=== PATIENT | female | born 1990 | race Caucasian/White ===

== ENCOUNTER 2016-07-06 08:34 | Emergency (ER) | payer OTHER ==
[~2016-07-06] VITALS: Ht 165.1 cm; Wt 93.4 kg
[2016-07-06 08:40] VITALS: BP 133/62
--- NOTE | 2016-07-06 08:49 | PHYS DOC ---
Past Medical History Past Medical History: Asthma Past Surgical History: No Surgical History Alcohol Use: Occasionally Drug Use: None Adult General Chief Complaint Chief Complaint: ASTHMA HPI HPI Patient is a 25 year old female, with a history of asthma in is 20 weeks , presents emergency room with concerns for increasing problems with her asthma over the past week. Patient states it happens at this time of year during allergy season. She states she is also taking Zyrtec for her allergies. Patient denies known history of previous intubations for asthma complications. She states that she was hospitalized once as a very young child but has no memory of this. In regards to patient's , she reports that it is uncomplicated. She denies abdominal/pelvic pain, vaginal bleeding or vaginal discharge. Patient is followed by Dr. Dai [employer]. Of incidental note, patient was seen almost one year ago at this facility for the same thing. Review of Systems Review of Systems Constitutional: Denies fever or chills [] Eyes: Denies change in visual acuity, redness, or eye pain [] HENT: Denies nasal congestion or sore throat [] Respiratory: Denies cough or shortness of breath [] Cardiovascular: No additional information not addressed in HPI [] GI: Denies abdominal pain, nausea, vomiting, bloody stools or diarrhea [] : Denies dysuria or hematuria [] Musculoskeletal: Denies back pain or joint pain [] Integument: Denies rash or skin lesions [] Neurologic: Denies headache, focal weakness or sensory changes [] Endocrine: Denies polyuria or polydipsia [] Current Medications Current Medications Current Medications Medications (Trade) Dose Ordered Sig/Mook Start Time Stop Time Status Last Admin Dose Admin Albuterol/ Ipratropium (Duoneb) 3 ml 1X ONCE 07/06/16 09:30 07/06/16 09:31 07/06/16 08:52 3 ML Prednisone (Prednisone) 50 mg 1X ONCE 07/06/16 09:30 07/06/16 09:31 07/06/16 09:07 50 MG Allergies Allergies Allergies Coded Allergies Type Severity Reaction Last Updated Verified No Known Drug Allergies 08/13/15 No Physical Exam Physical Exam Constitutional: Well developed, well nourished, no acute distress, non-toxic appearance. Patient is afebrile HENT: Normocephalic, atraumatic, bilateral external ears normal, oropharynx moist, no oral exudates, boggy nasal mucosa with scant amount of clear rhinorrhea. Eyes: PERRLA, EOMI, conjunctiva normal, no discharge. [] Neck: Normal range of motion, no tenderness, supple, no stridor. No cervical lymphadenopathy. Cardiovascular:Heart rate regular rhythm, no murmur [] Lungs & Thorax: There is no evidence of respiratory distress or respiratory fatigue. Patient speaks in full, unbroken sentences. There is no posturing or sensory muscle use. There is scant, bilateral end expiratory wheezing. Oxygen saturation on room air is 96%. Abdomen: Bowel sounds normal, soft, no tenderness, no masses, no pulsatile masses. Abdomen is gravid with fundal height consistent with dates. Nontender to palpation. Skin: Warm, dry, no erythema, no rash. [] Back: No tenderness, no CVA tenderness. [] Extremities: No tenderness, no cyanosis, no clubbing, ROM intact, no edema. [] Neurologic: Alert and oriented X 3, normal motor function, normal sensory function, no focal deficits noted. [] Psychologic: Affect normal, judgement normal, mood normal. [] Current Patient Data Vital Signs Vital Signs Date Time Temp Pulse Resp B/P Pulse Ox O2 Delivery O2 Flow Rate FiO2 07/06/16 08:40 97.7 84 20 96 Room Air 97.7 EKG EKG [] Radiology/Procedures Radiology/Procedures [] Course & Med Decision Making Course & Med Decision Making Patient received a DuoNeb treatment via RT. She received 50 mg of prednisone by mouth. Reevaluation post nebulizer treatment finds patient "feeling much better ". Patient has no residual wheezing. She demonstrates ease of breathing without any difficulty. Dragon Disclaimer Dragon Disclaimer This electronic medical record was generated, in whole or in part, using a voice recognition dictation system. Departure Departure Impression: Primary Impression: Asthma attack Disposition: HOME, SELF-CARE Condition: IMPROVED Referrals: NO PCP (PCP) Patient Instructions: Allergic Rhinitis, Asthma Prevention-Brief, Asthma, Adult , [id number] Additional Instructions: 1. Review the discharge instructions provided for self-care and reasons to return to the emergency department. 2. Take the medication as prescribed. 3. Contact Dr. Dai's office Thursday to schedule follow-up appointment. Scripts Cetirizine Hcl (Zyrtec)10 Mg Tablet1 Tab PO DAILY #30 TAB Ref 2 Prov:MIKE HORNE 07/06/16 Prednisone 20 Mg Tablet2 Tab PO DAILY 4 Days Prov:MIKE HORNE 07/06/16 Albuterol Sulfate (Ventolin Hfa Inhaler)18 Gm Hfa.aer.ad2 Puff INH Q4HRS FOR ASTHMA #2 INHALER Ref 1 Use the inhaler when the nebulizer is not available. Prov:MIKE HORNE 07/06/16 Albuterol Sulfate (Albuterol Sulfate Conc Neb Soln)2.5 Mg/0.5 Ml Vial.neb1 Vial NEB Q4HRS #60 VIAL Ref 1 Prov:MIKE HORNE 07/06/16 MIKE HORNE Jul 06, 2016 08:49
[2016-07-06] MEDS ORDERED: CETI10TA22 PO (09:14)
[2016-07-06] MEDS ORDERED: VENTOLIN HFA18 GM INH (09:14)
[2016-07-06] MEDS ORDERED: PRED20TA PO (09:14)
[2016-07-06] MEDS ORDERED: ALBU2.5V14 NEB (09:14)
[2016-07-06] MEDS ORDERED: PREDNISONE 10 MG TABLET PO ONE (09:30)
[2016-07-06] MEDS ORDERED: IPRATRPIUM/ALBUTEROL 0.5/2.5MG 3 ML NEBU. NEB ONE (09:30)
== END 2016-07-06 09:23 | disposition home or self-care (01) ==
LOC: ER 08:34
DX: O99.512 Diseases of the respiratory system complicating pregnancy, second trimester (principal); J45.909 Unspecified asthma, uncomplicated; Z3A.20 20 weeks gestation of pregnancy
CPT/HCPCS: 94250; 94640; 99283; J7512; J7620

== ENCOUNTER → 2016-07-28 | Outpatient (CLI) | payer OTHER ==
[2016-07-06 08:40] VITALS: BP 133/62
[~2016-07-28] MED LIST: ALBU2.5V14 NEB; CETI10TA22 PO; PRED20TA PO; VENTOLIN HFA18 GM INH
--- NOTE | 2016-07-28 11:15 | RAD ---
Examination: Obstetric ultrasound History: History of uterine size date discrepancy 5 comparison: None available Findings: The cervical length is 5.2 cm LMP 02/11/2016 Clinical history 24 weeks and 0 days with expected date of delivery 11/17/2016 Ultrasound age is 23 weeks and 1 days with the ultrasound expected date of delivery 11/23/2016 Estimated weight 616 g +/- 91 g Cephalic index 73.2 Head circumference to abdominal circumference is 1.09 Femur length to biparietal diameter 81.6 Femur length to head circumference 20.7 Femur length to abdominal circumference 22.6 Biparietal diameter 5.26 cm corresponding to 22 weeks and 0 days +/- 12 days Head circumference 20.68 cm corresponding to 22 weeks and 5 days +/- 10 days Abdominal circumference 18.98 cm corresponding to 23 weeks and 5 days +/- 14 days Femur length 4.29 cm corresponding to 24 weeks and 0 days +/- 15 days movement, cardiac activity, four-chamber heart, three-vessel cord seen. Cord insertion, fluid in the bladder, stomach, kidneys, spine, brain visualized position is transverse. Amniotic fluid index is within normal limits. Placental localization is anterior wall and in the left lateral region. Few placental lakes identified. Examination is limited due to baby's position. Impression: Single living intrauterine with ultrasound gestational age of 23 weeks and 1 day with expected date of delivery 11/23/2016.
== END | disposition home or self-care (01) ==
LOC: US 09:47
PROVIDERS: ATTEND Obstetrics & Gynecology
DX: O26.842 Uterine size-date discrepancy, second trimester (principal); Z3A.23 23 weeks gestation of pregnancy
CPT/HCPCS: 76805